=== PATIENT | female | born 2000 | race Asian ===

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

== ENCOUNTER 2022-02-22 04:07 | Emergency (ER) | payer OTHER ==
[~2022-02-22] VITALS: Ht 160 cm; Wt 86.6 kg
[2022-02-22 04:28] VITALS: TEMP 99.8
[2022-02-22] MEDS ORDERED: TAMIFLU75 MG PO (06:13)
[2022-02-22 06:20] VITALS: BP 109/52
== END 2022-02-22 12:15 | disposition home or self-care (01) ==
LOC: ED 04:07
DX: J10.1 Influenza due to other identified influenza virus with other respiratory manifestations (principal); Z20.822 Contact with and (suspected) exposure to COVID-19
CPT/HCPCS: 87502; 87635; 87651; 99283; J2405; U0003

== ENCOUNTER 2022-09-26 10:05 | Emergency (ER) | payer OTHER ==
[~2022-09-26] VITALS: Ht 160 cm; Wt 93.0 kg
[~2022-09-26 10:05] MED LIST changes: +TAMIFLU75 MG PO
[2022-09-26 10:45] LABS: PLATELET COUNT 264 K/uL (152-353)
[2022-09-26 10:55] LABS: POTASSIUM 3.6 mmol/L (3.6-5.2); SODIUM 138 mmol/L (136-145)
[2022-09-26 11:28] VITALS: BP 127/74; TEMP 97.4
== END 2022-09-26 11:31 | disposition home or self-care (01) ==
LOC: ED 10:05
PROVIDERS: Family Medicine
DX: M54.12 Radiculopathy, cervical region (principal); R07.89 Other chest pain
CPT/HCPCS: 80053; 81025; 84443; 84484; 85027; 85379; 93005; 99283